=== PATIENT | female | born 1935 | race Caucasian/White ===

== ENCOUNTER → 2022-08-02 13:12 | Outpatient (BNVA) | payer MEDICARE, SELFPAY | PROVIDERS: PCP Nurse Practitioner Family; Visit Provider Nurse Practitioner Family | DX: R39.9 Unspecified symptoms and signs involving the genitourinary system (principal); N39.0 Urinary tract infection, site not specified; B34.9 Viral infection, unspecified | CPT/HCPCS: 81000 ==

== ENCOUNTER 2022-10-02 22:45 | Observation (INO) | payer MEDICARE, SELFPAY ==
[2022-10-02 22:51] VITALS: BP 201/118; PULSE 120; RESP 16; TEMP 36.2; O2SAT 96; BMI 27.4
--- NOTE | 2022-10-02 23:01 | CTR_ITS ---
PROCEDURE INFORMATION: Exam: CT Head Without Contrast Exam date and time: 10/02/2022 11:54 PM Age: 87 years old Clinical indication: Altered mental status/memory loss; Confusion or disorientation; Patient HX: Increasing confusion per family; Additional info: AMS TECHNIQUE: Imaging protocol: Computed tomography of the head without contrast. Radiation optimization: All CT scans at this facility use at least one of these dose optimization techniques: automated exposure control; mA and/or kV adjustment per patient size (includes targeted exams where dose is matched to clinical indication); or iterative reconstruction. COMPARISON: No relevant prior studies available. RADIATION DOSE METRICS: Total DLP (mGy-cm): 1042.28 FINDINGS: Brain: Moderate diffuse white matter disease likely reflecting chronic microvascular ischemic changes. Right frontal high convexity 14 mm calcified meningioma with some mild mass effect on the underlying brain parenchyma is likely chronic. Cerebral ventricles: No ventriculomegaly. Paranasal sinuses: Visualized sinuses are unremarkable. No fluid levels. Mastoid air cells: Visualized mastoid air cells are well aerated. Bones/joints: Unremarkable. No acute fracture. Soft tissues: Unremarkable. CT/CT head wo con* [id number] IMPRESSION: 1. Negative for intracranial hemorrhage. 2. Moderate diffuse white matter disease likely reflecting chronic microvascular ischemic changes. 3. Right frontal high convexity 14 mm calcified meningioma with some mild mass effect on the underlying brain parenchyma is likely chronic.
--- NOTE | 2022-10-02 23:01 | ECG_ITS ---
[facility] Test Date: 2022-10-02 Pat Name: Karen Gutierrez Department: Room: Gender: Female Technician Biological Health: : 1935 Requested By: Ca Sutton Order Number: [id number] Reading MD: Adonay Price M.D. Measurements Intervals [place] Rate: 108 P: [place]: QRS: 38 QRSD: 99 T: -18 QT: 347 QTc: 466 Interpretive Statements ATRIAL FIBRILLATION WITH RAPID VENTRICULAR RESPONSE NONSPECIFIC ST & T-WAVE ABNORMALITY ABNORMAL RHYTHM ECG No previous ECG available for comparison Electronically Signed On 10-03-2022 15:01:18 BIODIESEL PRODUCT MANAGER by Adonay Price M.D. [id number]
--- NOTE | 2022-10-02 23:01 | XRR_ITS ---
PROCEDURE INFORMATION: Exam: XR Chest Exam date and time: 10/03/2022 12:12 AM Age: 87 years old Clinical indication: Other: Hypertension; Additional info: HTN TECHNIQUE: Imaging protocol: Radiologic exam of the chest. Views: 1 view. COMPARISON: No relevant prior studies available. FINDINGS: Lungs: Unremarkable. No consolidation. Pleural spaces: Unremarkable. No pleural effusion. No pneumothorax. Heart/Mediastinum: Cardiomegaly. Bones/joints: Unremarkable. XR/XR chest 1V portable [id number] IMPRESSION: Cardiomegaly, negative for infiltrate
[2022-10-02 23:03] VITALS: BP 190/102; PULSE 104; RESP 14; O2SAT 96
[2022-10-02 23:07] LABS: Basophils # 0.1 10^3/uL (0.0-0.1); Basophils % 1.3 %; Eosinophils # 0.1 10^3/uL (0.0-0.8); Hematocrit 44.5 % (37.0-47.0); Hemoglobin 14.1 g/dL (11.5-15.3); Lymphocytes # 1.8 10^3/uL (0.8-4.8); Lymphocytes % 23.3 %; Mean Corpuscular HGB Conc 31.7 g/dL (30.0-36.0); Mean Corpuscular Hemoglobin 28.5 pg (28.0-34.0); Mean Corpuscular Volume 90.1 fl (81-99); Mean Platelet Volume 10.4 fL (7.4-10.4); Monocytes # 0.3 10^3/uL (0.2-0.9); Monocytes % 3.3 %; Neutrophils # 5.43 10^3/uL (1.8-7.7); Neutrophils % 70.8 %; Nucleated Red Blood Cells % 0 %; Platelet Count 238 10^3/cmm (130-400); Red Blood Count 4.94 10^6/uL (4.1-5.3); Red Cell Distribution Width 13.9 % (12.1-15.1); White Blood Count 7.7 10^3/uL (4.0-10.0)
--- NOTE | 2022-10-02 23:07 | W.ED.AMS ---
HPI - Altered Mental Status General: Chief Complaint: Altered Mental Status Stated Complaint: Stoke Like Symptoms Time Seen by Provider: 10/02/22 22:55 Source: patient and family Mode of arrival: ambulatory Limitations: no limitations History of Present Illness: 87-year-old female who is here with family states she has had some intermittent confusion throughout the day. They states that they first noticed it today at 4 PM she just had bouts where she is quite confused she has had no focal deficits no slurred speech patient here is at her baseline she is able answer all my questions appropriately she does appear to be in A. fib she denies any history of A. fib she denies chest pain abdominal pain or headache. Associated symptoms: Deny depression Review of Systems Const: Denies: fever(s), chills, body aches or change in appetite Eyes: Denies: blurry vision or eye discomfort ENMT: Denies: throat pain or dental pain Card: Denies: chest pain Resp: Denies: dyspnea GI: Denies: abdominal pain, nausea, vomiting or diarrhea : Denies: dysuria Musc: Denies: neck pain or back pain Skin/Breast: Denies: rash Neuro: Reports: confusion Psych: Denies: depression Rudy/Lymph: Denies: easy bruising All/Imm: Denies: urticaria PFSH ED PFSH: Surgical History Hx of knee surgery Social History Smoking and tobacco status: never smoked Physical Exam Const: COMMON NORMALS: patient oriented x3 and alert GENERAL APPEARANCE: frail appearing HENMT: COMMON NORMALS: normocephalic and atraumatic HEAD & SCALP: normocephalic and atraumatic MOUTH: Normal oral and palatal mucosa present Eye: COMMON NORMALS: Equal, round and reactive pupils present and conjunctivae normal VISUAL AYALA: No peripheral vision loss and No central vision loss ALIGNMENT: Yes alignment normal CONJUNCTIVA: Yes conjunctivae normal PUPIL: Yes Equal, round and reactive pupils present EOM: No EOM abnormal Neck/C-Spine: COMMON NORMALS: full ROM Chest: COMMONS NORMALS: normal inspection of the chest and normal palpation of entire chest wall Resp: COMMON NORMALS: normal respiratory effort and clear to auscultation bilaterally EFFORT & INSPECTION: Yes able to speak in complete sentences AUSCULTATION: clear to auscultation bilaterally Cardio: RATE: tachycardic RHYTHM: abnormal rhythm irregularly irregular GI: COMMON NORMALS: Normal to inspection, nondistended, normoactive bowel sounds present, Soft to palpation and non-tender PALPATION: Yes Soft to palpation Extremity: COMMON NORMALS: normal to inspection Neuro: COMMON NORMALS: patient oriented x3, CN's II-XII intact bilaterally, moves all extremities, no focal motor deficits and no sensory deficits noted SENSORIUM/ORIENTATION: Yes alert CRANIAL NERVES: Yes CN normal except as noted Course Vital Signs: Vital signs: Vital Signs Temperature 97.1 F L 10/02/22 22:51 Pulse Rate 104 H 10/02/22 23:03 Respiratory Rate 14 10/02/22 23:03 Blood Pressure 190/102 10/02/22 23:03 Pulse Oximetry 96 10/02/22 23:03 Oxygen Delivery Me thod 10/02/22 23:03 MDM - Altered Mental Status Medical Decision Making Patient presents here with altered mental status intermittently throughout the day she has been well-appearing here and able answer all my questions appropriately no focal deficits here head CT showed no acute findings she was found to be in A. fib with RVR new onset did give her Cardizem her heart rate is now in the 80s she is still in A. fib I will admit at this time for observation for her A. fib. Lab Data : 10/02/22 23:00 10/02/22 23:00 Radiology Impressions Chest X-Ray 10/02/22 23:01 IMPRESSION: Cardiomegaly, negative for infiltrate Head CT 10/02/22 23:01 IMPRESSION: 1. Negative for intracranial hemorrhage. 2. Moderate diffuse white matter disease likely reflecting chronic microvascular ischemic changes. 3. Right frontal high convexity 14 mm calcified meningioma with some mild mass effect on the underlying brain parenchyma is likely chronic. Laboratory Results WBC 7.7 10^3/uL (4.0-10.0) 10/02/22 23:00 RBC 4.94 10^6/uL (4.1-5.3) 10/02/22 23:00 Hgb 14.1 g/dL (11.5-15.3) 10/02/22 23:00 Hct 44.5 % (37.0-47.0) 10/02/22 23:00 MCV 90.1 fl (81-99) 10/02/22 23:00 MCH 28.5 pg (28.0-34.0) 10/02/22 23:00 MCHC 31.7 g/dL (30.0-36.0) 10/02/22 23:00 RDW 13.9 % (12.1-15.1) 10/02/22 23:00 Plt Count 238 10^3/cmm (130-400) 10/02/22 23:00 MPV 10.4 fL (7.4-10.4) 10/02/22 23:00 Neut % (Auto) 70.8 % 10/02/22 23:00 Lymph % (Auto) 23.3 % 10/02/22 23:00 [place] % (Auto) 3.3 % 10/02/22 23:00 Eos % (Auto) 1.0 % 10/02/22 23:00 Baso % (Auto) 1.3 % 10/02/22 23:00 Neut # (Auto) 5.43 10^3/uL (1.8-7.7) 10/02/22 23:00 Lymph # (Auto) 1.8 10^3/uL (0.8-4.8) 10/02/22 23:00 [place] # (Auto) 0.3 10^3/uL (0.2-0.9) 10/02/22 23:00 Eos # (Auto) 0.1 10^3/uL (0.0-0.8) 10/02/22 23:00 Baso # (Auto) 0.1 10^3/uL (0.0-0.1) 10/02/22 23:00 Nucleated RBC % (auto) 0 % 10/02/22 23:00 Nucleated RBCs # 0.0 /100WBC 10/02/22 23:00 Sodium 137 mmol/L (136-145) 10/02/22 23:00 Potassium 4.4 mmol/L (3.5-5.1) 10/02/22 23:00 Chloride 101 mmol/L (98-107) 10/02/22 23:00 Carbon Dioxide 27 mmol/L (22-29) 10/02/22 23:00 Anion Gap 13.4 (5-19) 10/02/22 23:00 BUN 17 mg/dL (8-23) 10/02/22 23:00 Creatinine 0.8 mg/dL (0.5-0.9) 10/02/22 23:00 GFR Calculation Not Reportable 10/02/22 23:00 Glucose 91 mg/dL (65-115) 10/02/22 23:00 Calculated Osmolality 285 mOsm/kg (285-295) 10/02/22 23:00 Calcium 9.8 mg/dL (8.5-10.5) 10/02/22 23:00 Magnesium 2.1 mg/dL (1.7-2.3) 10/02/22 23:00 Total Bilirubin 0.4 mg/dL (0.15-1.2) 10/02/22 23:00 AST 27 U/L (0-32) 10/02/22 23:00 ALT 19 U/L (0-33) 10/02/22 23:00 Alkaline Phosphatase 106 U/L (35-105) H 10/02/22 23:00 Troponin T Baseline 14 ng/L (0-10) H 10/02/22 23:00 NT-Pro-B Natriuret Pep 1548 pg/mL (0-450) H 10/02/22 23:00 Total Protein 7.9 g/dL (6.6-8.7) 10/02/22 23:00 Albumin 4.3 g/dL (3.5-5.2) 10/02/22 23:00 Globulin 3.6 g/dL (1.3-4.6) 10/02/22 23:00 Urine Color Yellow (Yellow) 10/02/22 23:48 Urine Appearance Clear (CLEAR) 10/02/22 23:48 Urine pH 7 (5-7) 10/02/22 23:48 Ur Specific [place] 1.005 (1.005-1.030) 10/02/22 23:48 Urine Protein Neg (Negative) 10/02/22 23:48 Urine Glucose (UA) Norm (Normal) 10/02/22 23:48 Urine Ketones Negative (Negative) 10/02/22 23:48 Urine Blood Neg (Negative) 10/02/22 23:48 Urine Nitrate Negative (Negative) 10/02/22 23:48 Urine Bilirubin Neg (Negative) 10/02/22 23:48 Urine Urobilinogen Norm mg/dL (Negative) 10/02/22 23:48 Ur Leukocyte Esterase Negative (Negative) 10/02/22 23:48 EKG Data EKG 1: I personally reviewed and interpreted this EKG as follows: EKG interpretation date: 10/02/22 EKG interpretation time: 23:08 Interpretation: afib rvr hr [address] or t wave abnormalities qrs 99 qtc 410 Discharge Plan Discharge Condition: Stable Prescriptions: No Action aspirin 81 mg tablet,delayed release (DR/EC) Referrals: Amalia Mcpherson FNP [Primary Care Provider] - Coding Level of Care Code ED Data Management Engineer for Chg Fwd Exam Comprehensive NIH stroke score NIHSS Level Of Consciousness - 1a: 0 Level Of Consciousness Questions - 1b: Both Correct Level Of Consciousness Commands - 1c: Both Correct Best Gaze - 2: Normal Visual Ayala - 3: No Visual Loss Facial Palsy - 4: Normal Motor Arm Right - 5: No Drift Motor Arm Left - 5: No Drift Motor Leg Right - 6: No Drift Motor Leg Left - 6: No Drift Limb Ataxia - 7: Absent Sensory - 8: Normal Best Language - 9: No Aphasia Dysarthia - 10: Normal Extinction And Inattention - 11: 0 Score Total Score: 0
[2022-10-02 23:30] LABS: Troponin(5th) Baseline 14 ng/L (0-10)
[2022-10-02 23:31] LABS: Alanine Aminotransferase 19 U/L (0-33); Albumin Level 4.3 g/dL (3.5-5.2); Alkaline Phosphatase 106 U/L (35-105); Blood Urea Nitrogen 17 mg/dL (8-23); Calcium 9.8 mg/dL (8.5-10.5); Carbon Dioxide 27 mmol/L (22-29); Chloride 101 mmol/L (98-107); Creatinine Clr Calc Pharmacy 52.0558; Globulin 3.6 g/dL (1.3-4.6); Glucose 91 mg/dL (65-115); Magnesium 2.1 mg/dL (1.7-2.3); Osmolality Calculated 285 mOsm/kg (285-295); Sodium 137 mmol/L (136-145); Total Bilirubin 0.4 mg/dL (0.15-1.2); Total Protein 7.9 g/dL (6.6-8.7)
[2022-10-02 23:32] LABS: Anion Gap 13.4 (5-19); Aspartate Amino Transferase 27 U/L (0-32); Potassium 4.4 mmol/L (3.5-5.1)
[2022-10-02] MEDS: dilTIAZem 5 mg/mL SDV 5 mL 15 MG IVP (23:33)
[2022-10-02 23:37] LABS: NT Pro B Type Natriuretic Pept 1548 pg/mL (0-450)
[2022-10-03] VITALS: PULSE 90; RESP 12; O2SAT 96
[2022-10-03 00:01] LABS: Add Urine Microscopic? NO; Charge for UA Resulting for Rev
[2022-10-03 00:06] LABS: Bilirubin Urine Neg (Negative); Blood Urine Neg (Negative); Glucose Urine UA Norm (Normal); Ketones Urine Negative (Negative); Leukocyte Esterase Urine Negative (Negative); Nitrate Urine Negative (Negative); Protein Urine Neg (Negative); Specific Gravity, Urine 1.005 (1.005-1.030); Urine Appearance Clear (CLEAR); Urine Color Yellow (Yellow); Urobilinogen Urine Norm (Negative); pH Urine 7 (5-7)
--- NOTE | 2022-10-03 00:50 | P.HP_ITS ---
Providers/Chief Complaint Admitting Physician: Salvatore Cho Primary Care Provider: ANG Rodríguez Chief Complaint: Stoke Like Symptoms History of Present Illness Pleasant 87-year-old lady without much significant past medical history Pleasant 87-year-old lady with, very hard of hearing, even with hearing aid, but does hear when spoken to closely and loudly, was brought in for evaluation to ER due to episodes of confusion, she states she remembers not feeling well today. Her son states she could not tell where she was, did no when she was sitting next to her, could not recognize her children, all unusual for her. She cannot clearly identify what was wrong, but feels that she was feeling out of sorts. On presentation in ER she is found to be hypertensive, blood pressure was 201/118. With atrial fibrillation RVR, heart rates in 120s. Does not have any past history of atrial fibrillation or cardiac issues. However, the son says she also does not see doctors. Her heart rate responded well to 50 mg IV push Cardizem. Head CT without intracranial hemorrhage, with moderate diffuse white matter disease likely reflecting chronic microvascular ischemic changes. Right frontal high convexity 14 mm calcified meningioma with some mild mass-effect on the underlying brain parenchyma is likely chronic. Chest x-ray with noted cardiomegaly, negative for infiltrate. She had been at baseline state of health prior to today. Review of Systems Const: Denies: fever(s), chills, body aches or malaise Eyes: Denies: change in vision, eye discomfort or eye redness ENMT: Denies: throat pain, oral sores or ear or mastoid pain Card: Denies: chest pain, edema, pre-syncope or dyspnea on exertion Resp: Denies: dyspnea, productive cough, change in phlegm color or hemoptysis GI: Denies: abdominal pain, nausea, vomiting, diarrhea, constipation, hematochezia or melena : Denies: flank pain, urinary frequency or hematuria Musc: Denies: back pain, joint swelling or joint redness Skin/Breast: Denies: rash or new lesions Neuro: Reports: confusion; Denies: headache(s), numbness in extremities, weakness in extremities or seizure-like activity Endo: Denies: polyuria or polydipsia Rudy/Lymph: Denies: easy bleeding or tender lymph nodes All/Imm: Denies: urticaria or tongue swelling Medications/Allergies Home Medications Medication Instructions Recorded Confirmed Last Taken Type aspirin 81 mg tablet,delayed mg 10/02/22 Unknown History release Allergies Allergy/AdvReac Type Severity Reaction Status Date / Time No Known Allergies Allergy Verified 10/02/22 23:08 PFSH Acute 2 PFSH: Medical History Hearing loss Surgical History H/O: hysterectomy Hx of knee surgery Family History Other No significant family history Social History Smoking and tobacco status: never smoked Alcohol intake: never Substance/Drug Use: never Lives independently: Yes Household members: none Marital status: / Vitals/I&O/Wt Last Vital Signs Temp 97.1 F L 10/02/22 22:51 Pulse 104 H 10/02/22 23:03 Resp 14 10/02/22 23:03 BP 190/102 10/02/22 23:03 Pulse Ox 96 10/02/22 23:03 O2 Del Method 10/02/22 23:03 Weight last 48 hrs Weight 74.843 kg Physical Exam Narrative: Son at bedside. Const: COMMON NORMALS: patient oriented x3 and alert GENERAL APPEARANCE: cooperative ORIENTATION/CONSCIOUSNESS: Yes awake OTHER: Very GRINDSTONE HENMT: COMMON NORMALS: oropharynx normal Neck/C-Spine: COMMON NORMALS: no JVD Resp: COMMON NORMALS: normal respiratory effort and clear to auscultation bilaterally AUSCULTATION: clear to auscultation bilaterally Cardio: COMMON NORMALS: no JVD, regular rhythm, S1 normal heart sound present, S2 normal heart sound present and No murmurs present (Cardio) RATE: tachycardic HEART SOUNDS: S1 normal heart sound present and S2 normal heart sound present GI: COMMON NORMALS: Normal to inspection, nondistended, normoactive bowel sounds present, Soft to palpation and non-tender PALPATION: Yes Soft to palpation Extremity: COMMON NORMALS: no joint enlargement and no pedal edema Neuro: COMMON NORMALS: patient oriented x3 and moves all extremities SENSORIUM/ORIENTATION: Yes alert Skin: COMMON NORMALS: no rashes or lesions noted GENERAL SKIN EXAM: no rashes or lesions noted Data : 10/02/22 23:00 10/02/22 23:00 A&P Assessment and plan (1) Acute encephalopathy: Acute encephalopathy episodes today, suspect possibly hypertensive enceph alopathy as she was very hypertensive on presentation, with tachycardia and new onset A. fib with RVR. Her symptoms appear to have resolved with improvement in blood pressure and heart rate in ER. Chest x-ray, UA unremarkable. Electrolytes okay. Incidentally noted meningioma on head CT, no seizure-like activity reported, although in case of recurrent episodes in case of no other etiology consid eration may be given for additional assessment. (2) Paroxysmal atrial fibrillation with RVR: Heart rates into 120s on presentation, responded well to Cardizem 50 mg IV push. We will continue with metoprolol 25 mg twice daily. Discussed with her and her son regarding risk of CVA, and with discussion of risks and benefits she is agreeable to start Eliquis. Denies any problems with bleeding, falls. Assess TTE Check TSH. (3) HTN (hypertension): Blood pressure very elevated on presentation, 201/118. She does not go to doctors, and so unclear how long she may have been hypertensive for at those levels. Blood pressures previously with hypertension going back over a year. So far blood pressure responded well to Cardizem. Start metoprolol 25 mg twice daily, reassess blood pressures. Optimize regimen depending on response. Cardiac diet. (4) Cardiomegaly: Assess TTE. Does not appear to be in heart failure. (5) Meningioma: Incidentally noted on CT head 14 mm calcified meningioma with some mild mass- effect on underlying brain parenchyma likely chronic. No seizure-like activity reported. In case of recurrent episodes of confusion consider additional work-up. Follow-up with primary provider. Attestations Medical Necessity Statement*: Place in observation for additional assessment of management of acute encephalopathy episode, new A. fib with RVR, optimization of control of hypertension. Coding Level of Care Code Acute Recruiter Coordinator for [facility] Diagnoses Acute encephalopathy G93.40 Paroxysmal atrial fibrillation with RVR I48.0 HTN (hypertension) I10 Cardiomegaly I51.7 Meningioma D32.9
--- NOTE | 2022-10-03 00:54 | ECG_ITS ---
[facility] Test Date: 2022-10-03 Pat Name: Karen Gutierrez Department: Room: EDIP Gender: Female Inlayer: : 1935 Requested By: Ca Sutton Order Number: [id number] Henrik MD: Adonay Price M.D. Measurements Intervals [place] Rate: 84 P: DC: QRS: 30 QRSD: 97 T: -12 QT: 383 QTc: 455 Interpretive Statements ATRIAL FIBRILLATION ABNORMAL RHYTHM ECG Compared to ECG 10/02/2022 23:08:35 T-wave abnormality no longer present Electronically Signed On 10-03-2022 15:05:12 HEAD RIGGER by Adonay Price M.D. [id number]
[2022-10-03 01:00] VITALS: BP 155/98; PULSE 87; RESP 17; O2SAT 96
--- NOTE | 2022-10-03 01:08 | USCV_ITS ---
Karen Gutierrez Age: 87 Gender: F : 1935 Exam Date: 10/03/2022 02:32 Ordering Phys: Salvatore Cho MD Technologist: HONEY [place] [facility] [place]: new atrial fibrillation BP: 190 / 102 HR: 82 Rhythm: Atrial fibrillation Technical Quality: Adequate MEASUREMENTS (Male / Female) Normal Values 2D ECHO LV Diastolic Diameter PLAX 2.9 cm 4.2 - 5.9 / 3.9 - 5.3 cm LV Systolic Diameter PLAX 2.1 cm IVS Diastolic Thickness 1.8 cm 0.6 - 1.0 / 0.6 - 0.9 cm IVS Systolic Thickness 2.0 cm LVPW Diastolic Thickness 1.7 cm 0.6 - 1.0 / 0.6 - 0.9 cm LVPW Systolic Thickness 1.9 cm LVOT Diameter 1.9 cm LV Ejection Fraction 2D Teich 54.6 % LV Ejection Fraction MOD 2C 55.6 % LV Ejection Fraction 2C AL 64.0 % LA Diameter 3.8 cm LA Width 4.4 cm LA Height 7.6 cm RA Width 5.2 cm RA Height 5.8 cm Aorta at Sinotubular Diameter 3.7 cm IVC Diameter 2.5 cm M-MODE Aortic Annulus Diameter 3.9 cm LA Ao Ratio MM 1.0 MV E Point Septal Separation 0.0 cm DOPPLER AV Peak Velocity 113.0 cm/s LVOT Peak Velocity 90.0 cm/s AV Area Cont Eq vti 2.3 cm squared AV Area Cont Eq pk 2.3 cm squared MV Peak Velocity 115.0 cm/s MV Area PHT 3.5 cm squared Mitral E to A Ratio 208.8 MV E' Velocity 57.5 cm/s Mitral E to MV E' Ratio 8.7 Mitral E to LV E' Lateral Ratio 9.2 Mitral E to LV E' Septal Ratio 8.3 TR Peak Velocity 289.8 cm/s TR Peak Gradient 33.6 mmHg TV Peak E Velocity 49.0 cm/s Right Atrial Pressure 5.0 mmHg Pulmonary Artery Systolic Pressu 38.6 mmHg PV Peak Velocity 72.0 cm/s RV Acceleration Time 0.1 s RV Ejection Time 0.3 s RV AcT/ET 0.3 FINDINGS Left Ventricle Normal left ventricular size, systolic function and wall thickness, with no regional wall motion abnormalities. Rhythm precludes evaluation of diastolic function. Left ventricular ejection fraction is estimated at 60 %. Right Ventricle Normal right ventricular size and systolic function. Right Atrium Mildly increased right atrial size. Left Atrium Moderately increased left atrial size. Mitral Valve Structurally normal mitral valve. Moderate mitral valve regurgitation. Aortic Valve Structurally normal trileaflet aortic valve. No aortic valve stenosis. Xuid-ft-inrljjiv aortic valve regurgitation. Tricuspid Valve Structurally normal tricuspid valve. Trace to mild tricuspid valve regurgitation. Pulmonic Valve Pulmonic valve not well visualized. Pericardium No pericardial effusion. Left pleural effusion. Aorta Normal ascending aorta dimension. IVC The inferior vena cava appears normal. CONCLUSIONS Normal left ventricular size, systolic function and wall thickness, with no regional wall motion abnormalities. Rhythm precludes evaluation of diastolic function. Left ventricular ejection fraction is estimated at 60 %. Mildly increased right atrial size. Moderately increased left atrial size. Structurally normal mitral valve. Moderate mitral valve regurgitation. Structurally normal trileaflet aortic valve. No aortic valve stenosis. Etkp-ti-fevaautq aortic valve regurgitation. No pericardial effusion. Left pleural effusion. There are no prior echocardiogram studies to compare. Dr. Adonay Price MD (Electronically Signed) Final Date: 03 October 2022 07:52 S
[2022-10-03] MEDS: aspirin 81 mg Chew Tablet 324 MG PO (01:34)
[2022-10-03 01:38] LABS: Troponin 5 2HR 14.48 ng/L (0-10)
[2022-10-03 01:47] LABS: Thyroid Stimulating Hormone 0.66 uIU/mL (0.27-4.20)
[2022-10-03 01:50] LABS: Troponin 5 2HR Delta 0.48 ABS# (0-10)
--- NOTE | 2022-10-03 05:01 | ECG_ITS ---
[facility] Test Date: 2022-10-03 Pat Name: Karen Gutierrez Department: Room: EDIP Gender: Female Prototype Carpenter: : 1935 Requested By: Ca Sutton Order Number: [id number] Henrik MD: Adonay Price M.D. Measurements Intervals [place] Rate: 85 P: [place]: QRS: 33 QRSD: 100 T: 22 QT: 406 QTc: 483 Interpretive Statements ATRIAL FIBRILLATION ABNORMAL RHYTHM ECG Compared to ECG 10/03/2022 00:54:07 No significant changes Electronically Signed On 10-03-2022 15:05:53 CASE MANAGERS by Adonay Price M.D. [email or web address] [email or web address] medical [email or web address] memorial [email or web address].[email or web address]/store/[id number]
[2022-10-03 05:06] VITALS: PULSE 84; RESP 16; O2SAT 94
[2022-10-03 05:23] LABS: Troponin 5 6HR 14.84 ng/L (0-10)
[2022-10-03 05:28] LABS: Troponin 5 6HR Delta 0.84 ng/L (0-12)
[2022-10-03 07:46] VITALS: BP 153/97; PULSE 95; RESP 18; O2SAT 95
[2022-10-03] MEDS: metoprolol tartrate 25 mg Tablet PO (08:07)
[2022-10-03] MEDS: apixaban 5 mg Tablet PO (08:07)
--- NOTE | 2022-10-03 11:09 | PM.DCS ---
Discharge Providers Date of Admission: 10/03/22 00:25 Date of Discharge: October 03, 2022 Attending Provider at Admission: Salvatore Cho Attending Provider at Discharge: Rd Loya MD Primary Care Provider: ANG Rodríguez Diagnoses at Discharge Discharge Diagnosis (1) Acute encephalopathy: Status: Acute (2) Paroxysmal atrial fibrillation with RVR: Status: Acute (3) HTN (hypertension): Status: Acute (4) Cardiomegaly: Status: Acute (5) Meningioma: Status: Acute Reason for Visit Reason for Visit: Stoke Like Symptoms Hospital Course Hospital Course 87-year old female with no significant past medical history was admitted last night with chief complaint of confusion, patient is very hard of hearing, she was admitted for the management of acute encephalopathy likely secondary to hypertensive emergency. Patient was also diagnosed with new A. fib with RVR, blood pressure as well as heart rate both responded well to Cardizem IV push CT head was negative for any acute intracranial pathology, 2D echo done during the hospital stay: Normal left ventricular size, systolic function and wall thickness, with no regional wall motion abnormalities. Rhythm ?precludes evaluation of diastolic function. Left ventricular ?ejection fraction is estimated at 60 %. ?Mildly increased right atrial size. Moderately increased left atrial size. Structurally normal mitral valve. Moderate mitral valve ?regurgitation.?Structurally normal trileaflet aortic valve. No aortic valve ?stenosis. [id number] aortic valve regurgitation. No pericardial effusion. Left pleural effusion. At the time of discharge patient was at baseline mentation, blood pressure was well controlled, heart rate was well controlled, She was discharged on amlodipine 10 mg p.o. daily, Eliquis 5 mg twice daily, metoprolol succinate 50 mg po daily, aspirin has been discontinued. Risk and benefit of oral anticoagulation has been explained to her, patient verbalizes understanding. Patient is being discharged home, has been asked to maintain a blood pressure log and heart rate log, and see primary care physician in a week. Physical Exam Const: COMMON NORMALS: patient oriented x3 HENMT: COMMON NORMALS: normocephalic, atraumatic, hearing grossly normal bilaterally and external ears normal HEAD & SCALP: normocephalic and atraumatic EXTERNAL EAR: Yes external ears normal Eye: COMMON NORMALS: no scleral icterus GENERAL EYE: appearance normal, both eyes and all related structures Resp: COMMON NORMALS: normal respiratory effort, No retractions, No use of accessory muscles and clear to auscultation bilaterally EFFORT & INSPECTION: Yes symmetric chest movement AUSCULTATION: clear to auscultation bilaterally Cardio: COMMON NORMALS: regular rate, regular rhythm, S1 normal heart sound present, S2 normal heart sound present, No gallops present (Cardio), No murmurs present (Cardio), No rub (Cardio) and Peripheral pulses 2+ throughout RATE: regular rate RHYTHM: regular rhythm HEART SOUNDS: S1 normal heart sound present and S2 normal heart sound present PERIPHERAL PULSES: Peripheral pulses 2+ throughout GI: COMMON NORMALS: Normal to inspection, nondistended, normoactive bowel sounds present, Soft to palpation, non-tender, No hepatosplenomegaly present and no masses AUSCULTATION: Yes normoactive bowel sounds PALPATION: Yes Soft to palpation and Yes No hepatosplenomegaly present RECTAL EXAM: deferred Extremity: COMMON NORMALS: no clubbing, cyanosis or edema and no pedal edema Neuro: COMMON NORMALS: patient oriented x3 Discharge Data Studies Completed and Pending Completed Studies During Hospitalization Category Date Time Status CT head wo con* [id number] Stat Cat Scan 10/02/22 23:01 Completed XR chest 1V portable [id number] Stat Exams 10/02/22 23:01 Completed CV. echo complete* [id number] Routine Ultrasound 10/03/22 01:08 Completed Radiology Impressions Chest X-Ray 10/02/22 23:01 IMPRESSION: Cardiomegaly, negative for infiltrate Head CT 10/02/22 23:01 IMPRESSION: 1. Negative for intracranial hemorrhage. 2. Moderate diffuse white matter disease likely reflecting chronic microvascular ischemic changes. 3. Right frontal high convexity 14 mm calcified meningioma with some mild mass effect on the underlying brain parenchyma is likely chronic. Laboratory Results WBC 7.7 10^3/uL (4.0-10.0) 10/02/22 23:00 RBC 4.94 10^6/uL (4.1-5.3) 10/02/22 23:00 Hgb 14.1 g/dL (11.5-15.3) 10/02/22 23:00 Hct 44.5 % (37.0-47.0) 10/02/22 23:00 MCV 90.1 fl (81-99) 10/02/22 23:00 MCH 28.5 pg (28.0-34.0) 10/02/22 23:00 MCHC 31.7 g/dL (30.0-36.0) 10/02/22 23:00 RDW 13.9 % (12.1-15.1) 10/02/22 23:00 Plt Count 238 10^3/cmm (130-400) 10/02/22 23:00 MPV 10.4 fL (7.4-10.4) 10/02/22 23:00 Neut % (Auto) 70.8 % 10/02/22 23:00 Lymph % (Auto) 23.3 % 10/02/22 23:00 Bartholomew % (Auto) 3.3 % 10/02/22 23:00 Eos % (Auto) 1.0 % 10/02/22 23:00 Baso % (Auto) 1.3 % 10/02/22 23:00 Neut # (Auto) 5.43 10^3/uL (1.8-7.7) 10/02/22 23:00 Lymph # (Auto) 1.8 10^3/uL (0.8-4.8) 10/02/22 23:00 Bartholomew # (Auto) 0.3 10^3/uL (0.2-0.9) 10/02/22 23:00 Eos # (Auto) 0.1 10^3/uL (0.0-0.8) 10/02/22 23:00 Baso # (Auto) 0.1 10^3/uL (0.0-0.1) 10/02/22 23:00 Nucleated RBC % (auto) 0 % 10/02/22 23:00 Nucleated RBCs # 0.0 /100WBC 10/02/22 23:00 Sodium 137 mmol/L (136-145) 10/02/22 23:00 Potassium 4.4 mmol/L (3.5-5.1) 10/02/22 23:00 Chloride 101 mmol/L (98-107) 10/02/22 23:00 Carbon Dioxide 27 mmol/L (22-29) 10/02/22 23:00 Anion Gap 13.4 (5-19) 10/02/22 23:00 BUN 17 mg/dL (8-23) 10/02/22 23:00 Creatinine 0.8 mg/dL (0.5-0.9) 10/02/22 23:00 GFR Calculation Not Reportable 10/02/22 23:00 Glucose 91 mg/dL (65-115) 10/02/22 23:00 Calculated Osmolality 285 mOsm/kg (285-295) 10/02/22 23:00 Calcium 9.8 mg/dL (8.5-10.5) 10/02/22 23:00 Magnesium 2.1 mg/dL (1.7-2.3) 10/02/22 23:00 Total Bilirubin 0.4 mg/dL (0.15-1.2) 10/02/22 23:00 AST 27 U/L (0-32) 10/02/22 23:00 ALT 19 U/L (0-33) 10/02/22 23:00 Alkaline Phosphatase 106 U/L (35-105) H 10/02/22 23:00 Troponin T Baseline 14 ng/L (0-10) H 10/02/22 23:00 Troponin T 120 Minute 14.48 ng/L (0-10) H 10/03/22 01:04 Delta Troponin T 0.48 ABS# (0-10) 10/03/22 01:04 Troponin T Hi Sens 6Hr 14.84 ng/L (0-10) H 10/03/22 05:01 Troponin T Hi Sens 6Hr Delta 0.84 ng/L (0-12) 10/03/22 05:01 NT-Pro-B Natriuret Pep 1548 pg/mL (0-450) H 10/02/22 23:00 Total Protein 7.9 g/dL (6.6-8.7) 10/02/22 23:00 Albumin 4.3 g/dL (3.5-5.2) 10/02/22 23:00 Globulin 3.6 g/dL (1.3-4.6) 10/02/22 23:00 TSH 0.66 uIU/mL (0.27-4.20) 10/03/22 01:04 Urine Color Yellow (Yellow) 10/02/22 23:48 Urine Appearance Clear (CLEAR) 10/02/22 23:48 Urine pH 7 (5-7) 10/02/22 23:48 Ur Specific Wittman 1.005 (1.005-1.030) 10/02/22 23:48 Urine Protein Neg (Negative) 10/02/22 23:48 Urine Glucose (UA) Norm (Normal) 10/02/22 23:48 Urine Ketones Negative (Negative) 10/02/22 23:48 Urine Blood Neg (Negative) 10/02/22 23:48 Urine Nitrate Negative (Negative) 10/02/22 23:48 Urine Bilirubin Neg (Negative) 10/02/22 23:48 Urine Urobilinogen Norm mg/dL (Negative) 10/02/22 23:48 Ur Leukocyte Esterase Negative (Negative) 10/02/22 23:48 Vitals Last Vital Signs Temp 97.1 F L 10/02/22 22:51 Pulse 95 10/03/22 07:46 Resp 18 10/03/22 07:46 BP 153/97 10/03/22 07:46 Pulse Ox 95 10/03/22 07:46 O2 Del Method 10/03/22 07:46 Discharge Plan Discharge Patient Disposition: Home Condition: Stable Prescriptions: New amlodipine 10 mg Tablet 10 mg PO DAILY 30 Days Qty: 30 1RF Eliquis 5 mg Tablet 5 mg PO BID@0900,2100 30 Days Qty: 60 1RF metoprolol succinate 50 mg tablet extended release 24 hr 50 mg PO DAILY Qty: 30 0RF Continued dorzolamide-timolol 22.3-6.8 mg/mL drops 1 drp ophthalmic (eye) BID Discontinued aspirin 81 mg tablet,delayed release (DR/EC) 81 mg PO DAILY Discharge Orders: Discharge Order (Routine); Ordered 10/03/22 Ordered By: Rd Loya Referrals: Amalia Mcpherson FNP [Primary Care Provider] - 10/09/22 11:15 am Discharge Diet: Low Salt Discharge Activity: Resume usual activity Patient Instructions: Atrial Fibrillation, Metoprolol (By mouth), Amlodipine (By mouth), Apixaban (By mouth), Opioid Safety Discharge Attestations Time Spent in Discharge Care*: less than 30 min Quality Metrics Clinical Quality Measures [ No reported AMI, CVA or VTE this stay] Coding Level of Care Code Acute Chg FW DC note Exam Detailed Diagnoses Acute encephalopathy G93.40 Paroxysmal atrial fibrillation with RVR I48.0 HTN (hypertension) I10 Cardiomegaly I51.7 Meningioma D32.9
[2022-10-03] MEDS: amlodipine 10 mg Tablet PO (11:36)
[2022-10-03 12:17] VITALS: BP 153/97; PULSE 95; RESP 18; O2SAT 95
== END 2022-10-03 12:15 | disposition home or self-care (01) ==
LOC: ER 23:11 → ER IP 10-03 00:45 → MEDSURG 10-03 09:47
PROVIDERS: Admitting Provider Internal Medicine; Emergency Provider Emergency Medicine; PCP Nurse Practitioner Family; Visit Provider Internal Medicine
DX: G93.40 Encephalopathy, unspecified (principal); I48.0 Paroxysmal atrial fibrillation; I10 Essential (primary) hypertension; I51.7 Cardiomegaly; D32.9 Benign neoplasm of meninges, unspecified; Z79.82 Long term (current) use of aspirin
CPT/HCPCS: 70450; 71045; 80053; 81003; 83735; 83880; 84443; 84484; 85025; 93005; 93306; 96374; 99285; G0378; J3490